=== PATIENT | male | born 1960 | race Caucasian/White ===

== ENCOUNTER 2016-08-23 15:08 | Inpatient (IN) | payer OTHER ==
[~2016-08-23] VITALS: Ht 167.6 cm; Wt 61.4 kg
[~2016-08-23 15:08] MED LIST: CARDIZEM C1 PO; LISINOPRIL10 MG PO; PRILOSEC20 MG PO
--- NOTE | 2016-08-23 16:16 | ED ORDER SUMMARY ---
..... Patient: ROGELIO TEIXEIRA OrderSheet [facility] VisitID: [id number] [place] [address] 56y, M Registration Date/Time: 08/23/2016 ORDER SHEET Weight: 63.5 kg (stated) Allergies: No Known Drug Allergy GENERAL ORDERS: CBC w Diff Urgent (15:30 08/23/2016 HBivens A.R.N.P.) (Ack 15:34 OHbashirnandez) (15:36 LWhalen R.N.) CMP Urgent (15:30 08/23/2016 HBivens A.R.N.P.) (Ack 15:34 OHbashirnandez) (15:36 LWhalen R.N.) UA-Culture if indicated Urgent (15:30 08/23/2016 HBivens A.R.N.P.) (Ack 15:34 OHbashirnandez) (15:50 LWhalen R.N.) Amylase Urgent (15:30 08/23/2016 HBivens A.R.N.P.) (Ack 15:34 OHernandez) (15:36 LWhalen R.N.) Lipase Urgent (15:30 08/23/2016 HBivens A.R.N.P.) (Ack 15:34 OHernandez) (15:36 LWhalen R.N.) CT Abd/Pel w Cont (No) (pending) Urgent (15:34 08/23/2016 HBivens A.R.N.P.) (Ack 15:36 OHbashirnandez) (16:26 [facility]) Chest 2V Urgent (17:00 08/23/2016 HBivens A.R.N.P.) (Ack 17:03 OHernandez) (17:12 LWhalen R.N.) EKG - ER Stat (17:01 08/23/2016 HBivens A.R.N.P.) (Ack 17:03 OHbashirnandez) (17:37 OHbashirnandez) NPO (17:04 08/23/2016 HBivens A.R.N.P.) (17:12 LWhalen R.N.) US Abdomen Limited (No) Urgent (18:16 08/23/2016 HBivens A.R.N.P.) (Ack 18:28 Ellie) (19:13 Josie) MEDICATION ORDERS: IV FLUIDS: IV NS : initial bolus 1000 mL (1000 mL/hr), then none - for X1 (NOW) (15:30 08/23/2016 HBivens A.R.N.P.) (15:46 LWhalen R.N.) Toradol IV 30 mg (NOW) (15:30 08/23/2016 HBivens A.R.N.P.) (15:46 LWhalen R.N.) IV Saline Lock (15:30 08/23/2016 HBivens A.R.N.P.) (Ack 15:50 LWhalen R.N.) IV NS : initial bolus none -, then 250 mL/hr (NOW) (17:01 08/23/2016 HBivens A.R.N.P.) (17:12 LWhalen R.N.) ORDER SHEET NOTES: [Electronically signed by Frantz Barboza R.N. (19:32 08/23/2016)] [Electronically signed by Sruthi Fuentes.R.N.P. (21:15 08/23/2016)] [Electronically locked/signed by Frantz Barboza R.N. (19:32 08/23/2016)]
--- NOTE | 2016-08-23 16:16 | ED ORDER SUMMARY ---
..... Patient: ROGELIO TEIXEIRA OrderSheet [facility] VisitID: [id number] [place] [address] 56y, M Registration Date/Time: 08/23/2016 ORDER SHEET Weight: 63.5 kg (stated) Allergies: No Known Drug Allergy GENERAL ORDERS: CBC w Diff Urgent (15:30 08/23/2016 HBivens A.R.N.P.) (Ack 15:34 OHbashirnandez) (15:36 LWhalen R.N.) CMP Urgent (15:30 08/23/2016 HBivens A.R.N.P.) (Ack 15:34 OHbashirnandez) (15:36 LWhalen R.N.) UA-Culture if indicated Urgent (15:30 08/23/2016 HBivens A.R.N.P.) (Ack 15:34 OHbashirnandez) (15:50 LWhalen R.N.) Amylase Urgent (15:30 08/23/2016 HBivens A.R.N.P.) (Ack 15:34 OHernandez) (15:36 LWhalen R.N.) Lipase Urgent (15:30 08/23/2016 HBivens A.R.N.P.) (Ack 15:34 OHernandez) (15:36 LWhalen R.N.) CT Abd/Pel w Cont (No) (pending) Urgent (15:34 08/23/2016 HBivens A.R.N.P.) (Ack 15:36 OHbashirnandez) (16:26 [facility]) Chest 2V Urgent (17:00 08/23/2016 HBivens A.R.N.P.) (Ack 17:03 OHernandez) (17:12 LWhalen R.N.) EKG - ER Stat (17:01 08/23/2016 HBivens A.R.N.P.) (Ack 17:03 OHbashirnandez) (17:37 OHbashirnandez) NPO (17:04 08/23/2016 HBivens A.R.N.P.) (17:12 LWhalen R.N.) US Abdomen Limited (No) Urgent (18:16 08/23/2016 HBivens A.R.N.P.) (Ack 18:28 Ellie) (19:13 Josie) MEDICATION ORDERS: IV FLUIDS: IV NS : initial bolus 1000 mL (1000 mL/hr), then none - for X1 (NOW) (15:30 08/23/2016 HBivens A.R.N.P.) (15:46 LWhalen R.N.) Toradol IV 30 mg (NOW) (15:30 08/23/2016 HBivens A.R.N.P.) (15:46 LWhalen R.N.) IV Saline Lock (15:30 08/23/2016 HBivens A.R.N.P.) (Ack 15:50 LWhalen R.N.) IV NS : initial bolus none -, then 250 mL/hr (NOW) (17:01 08/23/2016 HBivens A.R.N.P.) (17:12 LWhalen R.N.) ORDER SHEET NOTES: [Electronically signed by Frantz Barboza R.N. (19:32 08/23/2016)] [Electronically signed by Sruthi Fuentes.R.N.P. (21:15 08/23/2016)] [Electronically locked/signed by Frantz Barboza R.N. (19:32 08/23/2016)]
--- NOTE | 2016-08-23 16:16 | ED CLINICAL REPORT ---
Clinical Report - Physicians/Mid Levels [facility] [address] [place] [address] 08/23/2016 15:11 Patient: ROGELIO TEIXEIRA Time Seen: 15:15; initial patient contact, initial documentation, patient care assumed. Arrived- By private vehicle. Historian- patient. HISTORY OF PRESENT ILLNESS Chief Complaint: ABDOMINAL PAIN. This started last night and is still present. It was abrupt in onset and has been constant. At its maximum, severity described as severe. When seen in the E.D., severity described as severe. Modifying factors- worsened by movement, cough and deep breaths. Not relieved by anything. It is described as "pain". No radiation. It is described as located in the right pelvis and left pelvis and in the pelvic area. No nausea, loss of appetite, vomiting or diarrhea. No additional abdominal pain. No recent travel. Similar symptoms previously: Occasionally, as bad. ( states this pain is lower and feels like his intestines, not his pancreas). Recent medical care: The patient was seen recently and hospitalized. ( admitted last Fri at [facility] for pancreatitis and abd pain, dc friday, had f/u appt today with his pcp for 1619, but pain was too severe, so cancelled that appt and came here). REVIEW OF SYSTEMS No constipation, black stools, hematemesis, difficulty with urination or pain with urination. No urinary frequency, bloody stools, fever, chest pain or difficulty breathing. All systems otherwise negative, except as recorded above. PAST HISTORY See nurses notes. PROBLEMS: Chest Pain of GI Origin. GI Bleeding. Pancreatitis. --15:22 Frantz Barboza R.N. ADDITIONAL SURGERIES: Appendectomy. Knee Surgery. --15:22 Frantz Barboza R.N. SOCIAL HISTORY Heavy tobacco smoker. Occasional alcohol use. No drug use. No recent travel. Is a local resident. FAMILY HISTORY Negative. ADDITIONAL NOTES The nursing notes have been reviewed with agreement regarding the chief complaint, HPI, ROS, PMH and patient medications and allergies. PHYSICAL EXAM Vital Signs: 08/23/2016 15:19 BP: 173/91. HR: 92. RR: 18. O2 saturation: 95%. Temp: 99.8 F. Have been reviewed as abnormal and appear to be correct. Hypertensive. Heart rate normal. Respiratory rate normal. Temperature normal. Oxygen saturation normal. Appearance: Alert. Oriented X3. No acute distress. (pt somewhat rude and sharp with his tone). Eyes: Pupils equal, round and reactive to light. Eyes normal inspection. Neck: Normal inspection. Neck supple. CVS: Normal heart rate and rhythm. Heart sounds normal. Pulses normal. Respiratory: No respiratory distress. Breath sounds normal. Chest nontender. Abdomen: Soft. Moderate tenderness diffusely with guarding present. No rebound tenderness or Ruiz's, obturator or psoas sign present. Bowel sounds normal. No organomegaly. No mass. Tenderness present. Back: Normal inspection. Skin: Skin warm and dry. Normal skin color. No rash. Normal skin turgor. Extremities: Extremities exhibit normal ROM. No lower extremity edema. Neuro: Oriented X 3. No motor deficit. No sensory deficit. LABS, X-RAYS, AND EKG EKG: EKG time: (1735). No acute process. No acute ischemia. Normal EKG. Rate: 75. Normal EKG. The study has been interpreted contemporaneously by me (and dr pinto). The EKG appears to be a good tracing. Interpretation time: 1737. Chest X-ray: Normal Chest X-Ray. (IMPRESSION: 1. Negative chest. Electronically Final signed by:Antione Lew MD 08/23/2016 5:13:41 PM). The X-rays were interpreted by the radiologist and contemporaneously by me. Abdominal CT: . IMPRESSION: 1. Moderate to marked inflammatory changes and fluid of the left upper abdominal mesentery with dilated small bowel loops (local ileus). The overall appearance suggests acute pancreatitis (pancreatic tail) superimposed on chronic pancreatitis. 2. There is a 2.5 cm irregular fluid collection between the tail the pancreas and small bowel loops which may represent early pseudocyst or phlegmon. 3. Severe chronic right hydronephrosis (chronic ureteral pelvic junction obstruction). 4. Small amount of pelvic ascites. 5. Findings discussed with BERRY Hutchison. 6. Findings called to Dr. Pawel Patterson. All CT scans at this facility use dose modulation, iterative reconstruction, and/or weight-based dosing when appropriate to reduce radiation dose to as low as reasonably achievable. Electronically Final signed by:Antione Lew MD 08/23/2016 6:13:57 PM. The study was interpreted by the radiologist and discussed with the radiologist. Interpretation time: 1814. Laboratory Tests: CBC w Diff: (AR: 08/23/2016 15:40) ( MsgRcvd 08/23/2016 15:50) Final results Test Result Flag Units (Reference) WHITE BLOOD COUNT 16.7 H K/uL (4.5-11.5) RED BLOOD COUNT 5.35 M/uL (4.50-5.90) HEMOGLOBIN 17.4 gm/dL (13.5-17.5) HEMATOCRIT 52.6 % (41.0-53.0) MEAN CELL VOLUME 98 fL (80-100) MEAN CORPUSCULAR HGB 33 pg (26-34) MEAN CORPUSCULAR HGB CONC 33 g/dL (31-37) RED CELL DISTRIBUTION WIDTH 15.0 H % (11.6-14.8) PLATELET COUNT 356 K/uL (150-400) NEUTROPHIL % 87.3 H % (50-75) LYMPH % 4.8 L % (25-40) MONO % 4.7 % (3-14) EOSINOPHIL % 3.0 % (0-4) BASOPHIL % 0.2 % (0-2) CMP: (AR: 08/23/2016 15:40) ( MsgRcvd 08/23/2016 16:04) Final results Test Result Flag Units (Reference) GLUCOSE 101 mg/dL (70-110) BUN 18 mg/dL (7-18) CREATININE 0.7 mg/dL (0.6-1.3) Estimated GFR >60 mL/min Estimated GFR- >60 mL/min Note: Persistent reduction over 3 months in eGFR<60 mL/min/1.73 m2 defines CKD. Patients with eGFR values>=60 mL/min/1.73 m2 may also have CKD if evidence ofpersistent proteinuria. Additional information may be foundat www.[email or web address].org. SODIUM 140 mmol/L (136-145) POTASSIUM 3.7 mmol/L (3.5-5.1) CHLORIDE 103 mmol/L (98-107) CARBON DIOXIDE 27 mmol/L (21-32) CALCIUM 9.1 mg/dL (8.5-10.1) TOTAL PROTEIN 7.2 g/dL (6.4-8.2) ALBUMIN 2.7 L g/dL (3.3-5.0) BILIRUBIN, TOTAL 0.8 mg/dL (0.0-1.0) ALKALINE PHOSPHATASE 132 H U/L (46-116) AST (SGOT) 19 U/L (15-37) ALT (SGPT) 24 U/L (12-78) LIPASE 1373 H U/L (73-393) AMYLASE 347 H U/L (25-115) . PROGRESS AND PROCEDURES Course of Care: nurse reporting pt rude to her during triage and check in 16:46 08/23/16. Dr Hernandez here, pt's case reviewed and ct, and he is now at bedside dr hernandez reporting pt rude with him also 1650. back at bedside, because Dr Hernandez informing me pt has pcp at [facility], and pt told me earlier that he went there once for bp med, but has no pcp, pt now telling that he has ladmariah [place]ana at [facility], but doens't know her name, and pt starting to get rude with me telling me that I can find this info out or he can walk over himself, and starting to go off on tirade, asked pt to stop, that he was being rude for no reason, that he was rude as soon as he got here, that I was trying to help him but he didn't need to be rude or condescending to me, pt then apologized, explained to pt that I was trying to get best care for him and get him back on track, pt then admitted that he was not upset with me or us, he was upset with [place] staff because he doesn't feel that they did enough for him, they dc him home with no meds, and he followed their diet they gave him, and he is still sick, reassured pt that we would find out more answers for him and get him feeling better, pt then again apologized for his earlier behavior 1814. Dr Lew calling asking if US had been ordered yet 1840. US at bedside 1900. US tech Latisha finished and pt headed to room upstairs. 08/23/2016 18:35 BP: 145/82. HR: 75. RR: 18. O2 saturation: 93%. Vital Signs: have been reviewed as normal and appear to be correct. Discussed case with on-call health care provider, (call returned 16:15 Dr Hernandez). Reviewed test results. Agreed upon treatment plan and decision to admit. Health care provider will see patient in ED. Call placed to on-call health care provider call returned 16:59 Dr Patterson, will see pt in hospital, asked to get ekg and chest xray before pt comes up. Patient counseled in person regarding the patient's stable condition, test results, diagnosis and need for additional testing and admission. Differential Diagnosis: I considered gastritis, gastroenteritis, peptic ulcer disease, gastroesophageal reflux disease, mesenteric lymphadenitis, diverticulitis, colon cancer, ulcerative colitis, Crohn's disease, biliary colic, cholecystitis, cholelithiasis, hepatitis, pancreatitis, common bile duct obstruction and viral syndrome as a possible cause of abdominal pain in this patient. This is a partial list of diagnoses considered. Above considerations are based on history, physical exam, reassessment, laboratory data and other information. Differential diagnosis was discussed with patient. Disposition: Admitted to Acute Care. 16:16. CLINICAL IMPRESSION Acute generalized abdominal pain. Acute biliary pancreatitis. INSTRUCTIONS (htn). (Electronically signed by Sruthi Fuentes A.R.N.P. 08/23/2016 21:15)
--- NOTE | 2016-08-23 16:16 | ED NURSING NOTES ---
Clinical Report - Nurses [facility] [address] [place] [address] 08/23/2016 15:11 [id number] Triage time 15:19 Aug 23 2016. Acuity: LEVEL 3. Chief Complaint: ABDOMINAL PAIN. MARIANNA COMA SCORE: Marianna Coma Scale: 15- eyes open spontaneously (4); best verbal response- oriented x 4 (5); best motor response- obeys commands (6). --15:24 Frantz Barboza R.N. 15:19 08/23/16. BP: 173/91. HR: 92. RR: 18. O2 saturation: 95%. Temp: 99.8 F. Pain level now 10/10. --15:24 Frantz Barboza R.N. Weight: 63.5 kg stated. Height/Length: 66 inches Per Patient. BMI: 22.6. --15:22 Frantz Barboza R.N. Medications PriLOSEC Oral, daily (not sure of dose). --15:22 Frantz Barboza R.N. Bp meds. --15:22 Frantz Barboza R.N. Allergies No Known Drug Allergy. --15:22 Frantz Barboza R.N. History Arrived by private vehicle. Historian: patient. Accompanied by family. This started last night. ( Was admitted friday afternoon at [facility] for pancreatits was released friday. Patient states afternoon felt very full and had reflux now currently doubled over in lower abd pain. With cough or walking pain in abd increases.). He has had fever and abdominal pain. No nausea, vomiting, diarrhea or constipation. Last oral intake by patient was dinner. PAST MEDICAL HX: Peptic ulcer disease. Immunizations: up-to-date. SOCIAL HX: Current every day heavy tobacco smoker (cigarette)- less than 1 pack per day. Occasional alcohol use. No drug use. No recent travel. No known contact with a sick individual. SELF HARM ASSESSMENT: A self harm assessment was performed. The patient answered "no" to the question "Have you recently felt down, depressed, or hopeless?" and "Do you have thoughts of harming or killing yourself?". FALL RISK ASSESSMENT: Fall risk assessment completed. No fall risk identified. NUTRITIONAL RISK ASSESSMENT: The nutritional risk assessment revealed no deficiencies. FUNCTIONAL ASSESSMENT: Functional assessment: no impairments noted. LEARNING NEEDS ASSESSMENT: The learning needs assessment revealed no barriers. ABUSE ASSESSMENT: Abuse assessment: (yes) The patient was asked "Do you feel safe in your home?". SKIN INTEGRITY ASSESSMENT: Skin integrity risk assessment completed. No skin integrity risk identified. --15:24 Frantz Barboza R.N. PROBLEMS: Chest Pain of GI Origin. GI Bleeding. Pancreatitis. --15:22 Frantz Barboza R.N. ADDITIONAL SURGERIES: Appendectomy. Knee Surgery. --15:22 Frantz Barboza R.N. Interventions ID band on patient. --15:24 Frantz Barboza R.N. PHYSICAL ASSESSMENT To room via wheelchair. GENERAL / NEURO / PSYCH: Alert. Oriented X 4. Appears anxious and in distress. HEENT: Mucous membranes are pink. RESPIRATORY: Respirations not labored. Breath sounds within normal limits. CVS: Normal sinus rhythm noted. Capillary refill less than 2 seconds. GI / : Abdominal tenderness. Bowel sounds within normal limits. Normal genitalia. SKIN: Skin is warm and dry. --15:25 Frantz Barboza R.N. NURSING PROGRESS NOTES The initial plan of care for this patient includes an assessment with efforts to address patient positioning, appropriate ambient lighting and comfortable environmental temperature; impairment of the gastrointestinal system. Pulse oximeter and NIBP monitor placed on patient. Patient gowned. Head of bed elevated 45 degrees. Reassurance given. Call light placed in reach. Side rails up x 1. Bed placed in lowest position. Brakes of bed on. --15:25 Frantz Barboza R.N. 15:36 08/23/2016 Site #1 started via IV in the right forearm with an 20g angiocath, with aseptic technique and good blood return; one attempt. Blood drawn: rainbow set. Labeled in the presence of the patient and sent to the lab. Saline lock flushed with 10 mL saline. --15:46 Frantz Barboza R.N. 15:36 08/23/2016 Started bag #1 1000 mL IV Fluids IV NS (Saline); at 1000 mL/hr over 1 hour(s) via site #1 via dial-a-flow. Allergies verified and confirmed 5 rights. IV patency established. IV site checked: no pain, redness, or swelling. IV flushed thoroughly pre- and post-medication administration. --15:46 Frantz Barboza R.N. 15:46 08/23/2016 Toradol IVP 30 mg given over 2 minute(s) via site #1. Allergies verified and confirmed 5 rights. IV patency established. IV site checked: no pain, redness, or swelling. IV flushed thoroughly pre- and post-medication administration. --15:46 Frantz Barboza R.N. 17:12 08/23/2016 Started bag #1 1000 mL IV Fluids IV NS (Saline); at 250 mL/hr over 4 hour(s) via site #1 via IV pump. Allergies verified and confirmed 5 rights. IV patency established. IV site checked: no pain, redness, or swelling. IV flushed thoroughly pre- and post-medication administration. --17:12 Frantz Barboza R.N. EKG time: (17:36). EKG was performed by a tech and shown to the ED physician. --17:41 Nancy Carbajal 18:35 08/23/16. BP: 145/82. HR: 75. RR: 18. O2 saturation: 93% on room air. 18:08/23/16. BP: 147/87. HR: 82. RR: 20. O2 saturation: 93% on room air. 17:45 08/23/16. BP: 139/87. HR: 76. RR: 18. O2 saturation: 93%. 17:08/23/16. BP: 147/85. HR: 77. RR: 18. O2 saturation: 92%. 16:08/23/16. BP: 145/88. HR: 87. RR: 18. O2 saturation: 92%. 16:08/23/16. BP: 148/84. HR: 79. RR: 18. O2 saturation: 93% on room air. 15:45 08/23/16. BP: 154/91. HR: 86. RR: 18. O2 saturation: 93%. 15:30 08/23/16. BP: 166/98. HR: 85. RR: 18. O2 saturation: 95%. --18:36 Frantz Barboza R.N. ( Called to give report James RN will call back diego.). --18:37 Frantz Barboza R.N. DISPOSITION / DISCHARGE 16:59 08/23/2016 IV Fluids IV NS Discontinued: bag #1 infused. Total amount infused: 1000 mL. IV patency established. IV site checked: no pain, redness, or swelling. IV flushed thoroughly. --19:24 Frantz Barboza R.N. 18:58 08/23/2016 Site #[address] upon transfer; patent. Poor blood return present. --19:23 Frantz Barboza R.N. 18:59 08/23/2016 IV Fluids IV NS Continued: at the rate of 250 mL/hr. 850 mL remaining bag #1. IV patency established. IV site checked: no pain, redness, or swelling. IV flushed thoroughly. --19:24 Frantz Barboza R.N. Admitted to Acute Care (203). --19:25 Frantz Barboza R.N. 18:35 08/23/16. BP: 145/82. HR: 75. RR: 18. O2 saturation: 93% on room air. --19:25 Frantz Barboza R.N. Locked/Released at 08/23/2016 19:32 by Frantz Barboza R.N.
--- NOTE | 2016-08-23 17:18 | DIAGNOSTIC IMAGING REPORT ---
PROCEDURE: XR CHEST 2 VIEW INDICATION: Abdominal/chest pain. TECHNIQUE: PA and lateral views. COMPARISON: Compared to chest x-ray on 01/11/2016. FINDINGS: Allowing for suboptimal inspiration, lungs are clear. Heart and mediastinum are normal. Mild degenerative changes of the thoracic spine. IMPRESSION: 1. Negative chest.
--- NOTE | 2016-08-23 18:18 | DIAGNOSTIC IMAGING REPORT ---
PROCEDURE: CT ABD/PELVIS WITH CONTRAST INDICATION: Abdominal pain. History of appendectomy, pancreatitis, and chronic right hydronephrosis. Elevated white blood count (16,700). TECHNIQUE: 125 ml of Isovue 300 were injected intravenously and axial images were obtained of the entire abdomen and pelvis with sagittal and coronal reformations. COMPARISON: Comparison is made to CT abdomen and pelvis (is a 25 16) and abdominal ultrasound (03/04/2016). FINDINGS: ABDOMEN: There are moderate to marked inflammatory changes in the left upper small bowel mesentery with mildly to moderately dilated small bowel loops (local ileus). In addition, there is a 2.5 cm irregular fluid collection between the small bowel loops and body of the pancreas (possible early pseudocyst or phlegmon). There is evidence of chronic pancreatitis with dystrophic calcifications and chronic dilation of the pancreatic duct. Gallbladder, liver, spleen, aorta, and left kidney are normal. There is severe chronic right hydronephrosis (suggests chronic ureteral pelvic junction obstruction). There mild degenerate changes of the lumbar spine with 30% old compression deformity of the L2 vertebral body. PELVIS: Small amount of pelvic ascites. Pelvic structures are normal. IMPRESSION: 1. Moderate to marked inflammatory changes and fluid of the left upper abdominal mesentery with dilated small bowel loops (local ileus). The overall appearance suggests acute pancreatitis (pancreatic tail) superimposed on chronic pancreatitis. 2. There is a 2.5 cm irregular fluid collection between the tail the pancreas and small bowel loops which may represent early pseudocyst or phlegmon. 3. Severe chronic right hydronephrosis (chronic ureteral pelvic junction obstruction). 4. Small amount of pelvic ascites. 5. Findings discussed with BERRY Hutchison. 6. Findings called to Dr. Pawel Patterson. All CT scans at this facility use dose modulation, iterative reconstruction, and/or weight-based dosing when appropriate to reduce radiation dose to as low as reasonably achievable.
--- NOTE | 2016-08-23 19:14 | DIAGNOSTIC IMAGING REPORT ---
PROCEDURE: US ABDOMEN ULTRASOUND-LIMITED INDICATION: Pancreatitis. Abdominal pain. Assess for gallstones. TECHNIQUE: Mondragon scale and color Doppler sonographic images of the abdomen were obtained. COMPARISON: Compared to CT abdomen and pelvis earlier today (08/23/2016) and prior abdominal ultrasound (03/04/2016). FINDINGS: There is moderate biliary sludge and echogenic bile throughout the gallbladder with minimal gallbladder wall thickening 92 mm). There is no evidence of shadowing gallstones. Common duct is normal (7 mm). Portions of the pancreas are seen and there is evidence is chronic pancreatitis with extensive dystrophic calcifications. IMPRESSION: 1. Moderate chronic biliary sludge and echogenic bile, but no evidence of shadowing gallstones. 2. Normal common duct (7 mm). 3. Evidence of chronic pancreatitis.
[2016-08-23 19:21] VITALS: BP 146/102
--- NOTE | 2016-08-23 21:15 | ED MAR SUMMARY ---
..... Medication Administration Record [facility] [address] [place] [address] Patient: ROGELIO TEIXEIRA Visit ID: [id number] 56y, M Weight: 63.5 kg Height/Length: 66 in BMI: 22.6 ALLERGIES: No Known Drug Allergy Start 15:36 08/23/2016 Frantz Barboza R.N., Stop 16:59 08/23/2016 Frantz Barboza R.N. Medication Administered: IV NS (SALINE), Dose: IV Fluids over 1 hour(s), Rate: 1000 mL/hr, Dispensed: 1000 mL bag, Site: #1 right forearm. Medication Ordered: IV NS : initial bolus 1000 mL (1000 mL/hr), then none - for X1 (NOW). Given 15:46 08/23/2016 Frantz Barboza R.N. Medication Administered: TORADOL [IVP], Dose: 30 mg IVP over 2 minute(s), Site: #1 right forearm. Medication Ordered: Toradol IV 30 mg (NOW). Start 17:12 08/23/2016 Frantz Barboza R.N., Continued Upon Disposition 18:59 08/23/2016 Frantz Barboza R.N. Medication Administered: IV NS (SALINE), Dose: IV Fluids over 4 hour(s), Rate: 250 mL/hr, Dispensed: 1000 mL bag, Site: #1 right forearm. Medication Ordered: IV NS : initial bolus none -, then 250 mL/hr (NOW).
--- NOTE | 2016-08-23 21:15 | ED MED RECONCILIATION SUMMARY ---
Patient: ROGELIO TEIXEIRA Medication Reconciliation Report [facility] VisitID: [id number] [address] [place] [address] 56y, M Registration Date/Time: 08/23/2016 Weight: 63.5 kg Height/Length: 66 in. BMI: 22.6 ALLERGIES: No Known Drug Allergy The patient's Home Medications are listed below: THE FOLLOWING MEDICATIONS NEED TO BE RECONCILED: Bp meds PriLOSEC Oral, daily, not sure of dose The source(s) of the original Home Medication information: Not obtained. The following Medications were given to the patient in the Emergency Department: IV NS IV Fluids bolus 0, then 1000 mL/hr, administered: 08/23/2016 3:36:00 PM Toradol [IVP] IVP 30 mg, administered: 08/23/2016 3:46:00 PM IV NS IV Fluids bolus 0, then 250 mL/hr, administered: 08/23/2016 5:12:00 PM The following Medications were prescribed to the patient: None.
--- NOTE | 2016-08-23 21:15 | ED DISCHARGE INSTRUCTIONS ---
Patient: ROGELIO TEIXEIRA General Instructions [facility] VisitID: [id number] [address] [place] [address] 56y, M Registration Date/Time: 08/23/2016 Acute generalized abdominal pain. Acute biliary pancreatitis. INSTRUCTIONS (htn). (Electronically signed by Srtuhi Fuentes A.R.N.P. 08/23/2016 21:15)
--- NOTE | 2016-08-23 21:15 | ED DISCHARGE INSTRUCTIONS ---
Patient: ROGELIO TEIXEIRA General Instructions [facility] VisitID: [id number] [address] [place] [address] 56y, M Registration Date/Time: 08/23/2016 Acute generalized abdominal pain. Acute biliary pancreatitis. INSTRUCTIONS (htn). (Electronically signed by Sruthi Fuentes A.R.N.P. 08/23/2016 21:15)
--- NOTE | 2016-08-23 21:15 | ED MED RECONCILIATION SUMMARY ---
Patient: ROGELIO TEIXEIRA Medication Reconciliation Report [facility] VisitID: [id number] [address] [place] [address] 56y, M Registration Date/Time: 08/23/2016 Weight: 63.5 kg Height/Length: 66 in. BMI: 22.6 ALLERGIES: No Known Drug Allergy The patient's Home Medications are listed below: THE FOLLOWING MEDICATIONS NEED TO BE RECONCILED: Bp meds PriLOSEC Oral, daily, not sure of dose The source(s) of the original Home Medication information: Not obtained. The following Medications were given to the patient in the Emergency Department: IV NS IV Fluids bolus 0, then 1000 mL/hr, administered: 08/23/2016 3:36:00 PM Toradol [IVP] IVP 30 mg, administered: 08/23/2016 3:46:00 PM IV NS IV Fluids bolus 0, then 250 mL/hr, administered: 08/23/2016 5:12:00 PM The following Medications were prescribed to the patient: None.
--- NOTE | 2016-08-23 21:15 | ED MAR SUMMARY ---
..... Medication Administration Record [facility] [address] [place] [address] Patient: ROGELIO TEIXEIRA Visit ID: [id number] 56y, M Weight: 63.5 kg Height/Length: 66 in BMI: 22.6 ALLERGIES: No Known Drug Allergy Start 15:36 08/23/2016 Frantz Barboza R.N., Stop 16:59 08/23/2016 Frantz Barboza R.N. Medication Administered: IV NS (SALINE), Dose: IV Fluids over 1 hour(s), Rate: 1000 mL/hr, Dispensed: 1000 mL bag, Site: #1 right forearm. Medication Ordered: IV NS : initial bolus 1000 mL (1000 mL/hr), then none - for X1 (NOW). Given 15:46 08/23/2016 Frantz Barboza R.N. Medication Administered: TORADOL [IVP], Dose: 30 mg IVP over 2 minute(s), Site: #1 right forearm. Medication Ordered: Toradol IV 30 mg (NOW). Start 17:12 08/23/2016 Frantz Barboza R.N., Continued Upon Disposition 18:59 08/23/2016 Frantz Barboza R.N. Medication Administered: IV NS (SALINE), Dose: IV Fluids over 4 hour(s), Rate: 250 mL/hr, Dispensed: 1000 mL bag, Site: #1 right forearm. Medication Ordered: IV NS : initial bolus none -, then 250 mL/hr (NOW).
--- NOTE | 2016-08-23 22:03 | HISTORY AND PHYSICAL ---
ADMITTED: 08/23/2016 CHIEF COMPLAINT: 1. Abdominal pain HISTORY OF PRESENT ILLNESS: A 56-year-old male with abdominal pain x1 day. It came on, on the day of admission, described as severe in his lower abdomen as well as his upper abdomen. He states it is similar to the pain with which he was admitted to [facility] 1 week earlier; however, that pain was more in the epigastrium. Now it is across his lower abdomen as well. He states at [facility] he was told initially it was pancreatitis; but on discharge, he was told it might have been gastroenteritis. He was tolerating oral intake on discharge and was asked to stay on a full liquid diet, which he did. He also avoided alcohol, but the pain recurred on the day of admission and he was readmitted 5 days post discharge. He denies nausea or vomiting. He denies diarrhea, constipation, bright red blood per rectum, or melena. MEDICAL/SURGICAL HISTORY: Remarkable for abdominal pain, chest pain, nicotine dependence, hypertension, pancreatitis, ureteral obstruction, and hydronephrosis. The patient notes his pancreatitis was diagnosed greater than 5 years ago and was diagnosed as being due to stones. He does, however, admit to a history of alcohol use of approximately 6 drinks per day, though he notes he has had no alcohol between his admission at [facility] and his present admission. Surgeries: Appendectomy and knee surgery. MEDICATIONS: 1. Lisinopril 20 mg p.o. daily. 2. Cardizem CD 240 mg p.o. daily. 3. Omeprazole 20 mg p.o. daily. ALLERGIES: 1. NONE KNOWN. 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 He enjoys hunting and fishing. Smokin-2 packs per day. Alcohol: 6 drinks per day. Drug use: None. FAMILY HISTORY: Father had coronary artery disease and CABG. Mother in her 60s of COPD. One brother has renal failure and drug abuse. Four siblings are alive and well. REVIEW OF SYSTEMS: General: Denies fevers, chills, or sweats. HEENT: Denies vision change, hearing change, sore throat, sinus pain or ear pain. Respiratory: Denies chest pain, shortness of breath, wheezing. Cardiac: Denies chest pain, palpitations, paroxysmal nocturnal dyspnea. Gastrointestinal: See above. Genitourinary: Denies dysuria, hematuria, frequency. Musculoskeletal: Denies joint swelling, joint pain, or joint instability. Dermatological: Denies rash, dry skin, or itchy skin. PHYSICAL EXAMINATION: GENERAL: Well developed, well-nourished male in mild distress. VITAL SIGNS: Blood pressure 173/91, heart rate 92, respirations 18, SaO2 95%, temperature 99.8. HEENT: Tympanic membranes are clear. Pupils equal, round, and reactive to light. Extraocular motions intact. Sinuses are nontender. Throat is clear. NECK: Supple without adenopathy or thyromegaly. CHEST: Clear to auscultation and percussion. HEART: Regular rate and rhythm without murmur. There is no JVD. Carotids are 2+ symmetric without bruit. ABDOMEN: Positive bowel sounds but diffusely tender with guarding. BACK: Straight without CVA tenderness. EXTREMITIES: Without cyanosis, clubbing, or edema. GENITAL AND RECTAL: Exams were deferred as these were performed in the emergency department. LAB/IMAGING: WBC 16.7, hemoglobin 17.4, hematocrit 52.6. Glucose 101, BUN 18, creatinine 0.7, sodium 140, potassium 3.7, chloride 103, bicarbonate 27. Total bilirubin 0.8, alkaline phosphatase 132, AST 19, ALT 24, lipase 1373, amylase 347. EKG shows no acute changes with a rate of 75. Chest x-ray is clear. CT shows marked inflammation with dilated small bowel loops and local ileus with appearance of acute pancreatitis superimposed on chronic pancreatitis, a 2.5 cm irregular fluid collection near the tail of the pancreas consistent with early pseudocyst versus phlegmon, chronic right hydronephrosis noted, small amount of pelvic ascites noted. Abdominal ultrasound is pending. IMPRESSION: 1. Pancreatitis, question secondary to stones versus alcohol abuse. 2. Alcohol abuse. 3. Hypertension. 4. History of peptic ulcer disease. 5. Tobacco abuse. PLAN: Admit to [facility]. Intravenous pain control to be undertaken. Intravenous hydration. Pain will be monitored for resolution of pancreatitis. The patient will be maintained nothing by mouth. FULL CODE STATUS instituted as per patient request. The patient will be maintained on telemetry because of a past history of chest pain.
[2016-08-23 22:31] VITALS: BP 142/90
[2016-08-24 02:02] VITALS: BP 142/86
[2016-08-24 07:28] VITALS: BP 136/92
--- NOTE | 2016-08-24 08:45 | Progress Note ---
Subjective General 56 yo male with recurrent pancreatitis and hx stones causing pancreatitis but also hx alcohol abuse. Feelin much better today with pain 1-2/10 and no pain meds x 8 hours. Not nauseated. Passing gas. Physical Exam Vital Signs / I&Os Vital Signs Date Time Temp Pulse Resp B/P Pulse O2 O2 Flow FiO2 Ox Delivery Rate 08/25 727 99.3 66 18 136/92 91 Room Air 0.0 08/24 0202 99.3 67 18 142/86 88 Room Air 08/24 0100 2.0 08/23 2231 99.0 67 18 142/90 91 Room Air 08/23 1921 98.1 73 18 146/102 93 Room Air I&O 08/23 0800 08/23 1600 08/24 0000 Intake Total 603 Output Total 200 Balance 403 General Appearance Alert, Oriented X3, Cooperative, No acute distress Lungs Clear to auscultation Cardiovascular Regular rate and rhythm Abdomen Soft, No guarding, No rebound, 1+ tenderness in left upper and right lower abdomen. Extremities No edema Skin No Rashes LAB Results Laboratory Tests 08/23 08/23 08/24 1540 1700 0542 Chemistry Plasma Sodium (136 - 145 mmol/L) 140 137 Plasma Potassium (3.5 - 5.1 mmol/L) 3.7 3.6 Plasma Chloride (98 - 107 mmol/L) 103 103 CO2 (Enzymatic) (21 - 32 mmol/L) 27 27 BUN (7 - 18 mg/dL) 18 15 Creatinine (0.6 - 1.3 mg/dL) 0.7 0.6 Est GFR ( Amer) (mL/min) >60 >60 Est GFR (Non-Af Amer) (mL/min) >60 >60 Glucose (70 - 110 mg/dL) 101 79 Plasma Calcium (8.5 - 10.1 mg/dL) 9.1 8.2 Plasma Magnesium (1.8 - 2.4 mg/dL) 1.6 Total Bilirubin (0.0 - 1.0 mg/dL) 0.8 0.8 AST (15 - 37 U/L) 19 16 ALT (12 - 78 U/L) 24 13 Alkaline Phosphatase (46 - 116 U/L) 132 105 Total Protein (6.4 - 8.2 g/dL) 7.2 5.7 Albumin (3.3 - 5.0 g/dL) 2.7 1.9 Amylase (25 - 115 U/L) 347 204 Lipase (73 - 393 U/L) 1373 567 Hematology WBC (4.5 - 11.5 K/uL) 16.7 14.5 RBC (4.50 - 5.90 M/uL) 5.35 4.70 Hgb (13.5 - 17.5 gm/dL) 17.4 15.4 Hct (41.0 - 53.0 %) 52.6 46.7 MCV (80 - 100 fL) 98 99 MCH (26 - 34 pg) 33 33 RDW (11.6 - 14.8 %) 15.0 14.6 Neut % (Auto) (50 - 75 %) 87.3 82.9 Lymph % (Auto) (25 - 40 %) 4.8 6.0 [place] % (Auto) (3 - 14 %) 4.7 7.0 Eos % (Auto) (0 - 4 %) 3.0 3.9 Baso % (Auto) (0 - 2 %) 0.2 0.2 Plt Count, EDTA (150 - 400 K/uL) 356 299 PUBS MCHC (31 - 37 g/dL) 33 33 Urines Urine Color YELLOW Urine Appearance CLEAR Urine pH (5.0 - 8.0) 5.5 Ur Specific [place] (1.010 - 1.030) 1.010 Urine Protein (NEGATIVE) NEGATIVE Urine Ketones (NEGATIVE) 1+ Urine Blood (NEGATIVE) NEGATIVE Urine Nitrite (NEGATIVE) NEGATIVE Urine Bilirubin (NEGATIVE) NEGATIVE Urine Urobilinogen (0.2 - 1.0 EU/dL) 0.2 Ur Leukocyte Esterase (NEGATIVE) NEGATIVE Urine RBC (0 - 1 rbc/hpf) NONE SEEN Urine WBC (0 - 1 wbc/hpf) 0-1 Ur Epithelial Cells (0 - 5 EPI/hpf) NONE SEEN Urine Bacteria (NONE SEEN) TRACE (<1+) Urine Glucose (NEGATIVE) NEGATIVE Urine Comment CULT NOT INDICATED Assessment and Plan Problem List 1. Acute pancreatitis, unspecified Plan Improving. Will start clear liquids. 2. Hypertension Plan Will restart po meds. 3. Biliary sludge determined by ultrasound Plan Will consult surgery
--- NOTE | 2016-08-24 10:44 | CONSULTATION REPORT ---
DATE OF CONSULTATION: 08/24/2016 CHIEF COMPLAINT: 1. Abdominal pain HISTORY OF PRESENT ILLNESS: A 56-year-old alcoholic male, discharged approximately 1 week ago from [facility] where he was admitted with a diagnosis of pancreatitis versus gastroenteritis. The patient developed acute onset abdominal pain on the day of admission, was evaluated in the emergency department and admitted to [facility] by Dr. Patterson. Dr. Patterson has asked [facility] for our opinion concerning this patient. The patient states that he has not drank alcohol within the last week. He had been on a clear liquid, which was advanced to a full liquid diet. The pain developed in his lower abdomen which he described as quite intense and localized. No nausea, no vomiting, no diarrhea. No bright red blood per rectum or melenic stools. No fever. No chills. MEDICATIONS: 1. Include lisinopril 20 mg daily. 2. Cardizem 240 mg daily. 3. Omeprazole 20 mg daily. ALLERGIES: 1. NONE. MEDICAL/SURGICAL HISTORY: Hypertension, history of chronic ureteral obstruction and hydronephrosis, also carries a diagnosis of chronic pancreatitis, having been first diagnosed and hospitalized 5 years ago. He is status post appendectomy, status post ORIF left knee following accident. He was hospitalized with an upper gastrointestinal bleed for which he received a transfusion and underwent upper GI endoscopy secondary to alcohol abuse. SOCIAL HISTORY: He is single. 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 He drinks 6 drinks per day, smokes 1-2 packs of cigarettes a day. Does not use recreational drugs. FAMILY HISTORY: Mother in her 70s from complications of COPD and emphysema. Father history of coronary artery disease and coronary artery bypass. He had 4 brothers, one of which from renal failure and excessive drug use. One sister, alive and well. REVIEW OF SYSTEMS: The patient denies any history of hepatitis, jaundice, rheumatic fever, heart murmurs requiring antibiotics, bleeding tendencies, but he is positive for blood transfusions. The remaining 12-point review of systems is negative. PHYSICAL EXAMINATION: GENERAL: The patient is awake, alert, conversant and does not appear to be in any acute distress. VITAL SIGNS: Blood pressure 136/92, pulse 66, respirations 18, temperature 99.3. HEENT: Normocephalic, atraumatic. Pupils equal and reactive. No scleral icterus. External auditory canals clear. No nasal septal defect or discharge. Moist mucous membranes. Throat not injected. NECK: Supple. No JVD, carotid bruit or adenopathy. LUNGS: Clear. No rales, rhonchi, or wheezing. O2 saturation 91% on room air. HEART: Regular rhythm, no murmurs. ABDOMEN: Slightly distended, slightly tympanitic. Has hyperactive bowel sounds. He is tender in his lower abdomen and very tender in the hypogastrium as well. There is no evidence of [place] or [place] sign. There are no masses appreciable. EXTREMITIES: Full range of motion. No pretibial or ankle edema. NEUROLOGIC: The patient is grossly intact with no focal motor neurological deficits. SKIN: Warm and dry with no peripheral cyanosis. LYMPHATICS: No cervical, supraclavicular, axillary, or groin adenopathy. LAB/IMAGING: On admission, the patient's white count was 16.7, hemoglobin and hematocrit 17.4 and 52.6 respectively. This morning, his white count is 14.5, hemoglobin and hematocrit 15.4 and 46.7. Electrolytes on admission were normal, as they are this morning, including BUN and creatinine. His total bilirubin on admission was 0.8, today it is 0.8, alkaline phosphatase 132, today is 105. His liver function studies are all normal. On admission, his lipase was 1373, this morning 567, amylase on admission 347, this morning 204. EKG normal sinus rhythm. Chest x-ray shows no active inflammatory changes and no evidence of effusion. CAT scan of his abdomen shows ileus with chronic superimposed acute pancreatitis, 2.5 pseudocyst tail of the pancreas, right hydronephrosis and a small amount of ascites in the pelvis. Ultrasound shows no evidence of stones, no evidence of wall thickening. Common bile duct measures 7 mm, which is normal, and biliary sludge. IMPRESSION: Uncontrolled alcoholic smoker with hypertension with acute pancreatitis superimposed over chronic pancreatitis. I do not feel that this is gallbladder related. I feel that this is related to his alcoholism. I have discussed the pathophysiology of pancreatitis with the patient concerning his alcohol. Because of his smoking, alcohol and recurrent episodes of pancreatitis, he has a higher risk than the general population of developing a pancreatic cancer. At this point, I do not see how surgery would benefit him. However, we will continue to followup is necessary with you on this patient.
[2016-08-24 11:04] VITALS: BP 144/90
[2016-08-24 13:58] VITALS: BP 152/87
[2016-08-24 18:15] VITALS: BP 141/84
[2016-08-24 22:52] VITALS: BP 141/86
[2016-08-25 03:00] VITALS: BP 129/75
--- NOTE | 2016-08-25 06:17 | Progress Note ---
Subjective General 56 yo male with recurrent pancreatitis and hx stones causing pancreatitis but also hx alcohol abuse. Also has hx htn and tobacco abuse. CT shows early pseudocyst formation and some ascites. Lucero shows no stones but sludge in gallbladder. Surgical consult obtained with Dr. Perera who notes surgery not currently indicated. Feeling improved today with pain 1-2/10 and no pain meds since one dose post dinner last night. Not nauseated. Passing gas. Tolerating clear liquids and ambulating. Labs pending. Physical Exam Vital Signs / I&Os Vital Signs Date Time Temp Pulse Resp B/P Pulse O2 O2 Flow FiO2 Ox Delivery Rate 08/25 0300 99.0 65 20 129/75 93 Room Air 08/24 2252 99.3 64 20 141/86 93 Room Air 08/24 1815 98.2 77 20 141/84 92 Nasal 2.0 Cannula 08/24 1606 Nasal 2.0 Cannula 08/24 1358 99.9 71 18 152/87 93 Nasal 2.0 Cannula 08/24 1104 98.8 70 18 144/90 93 Nasal 2.0 Cannula 08/24 0930 2.0 08/24 0728 99.3 66 18 136/92 91 Room Air 0.0 I&O 08/24 0800 08/24 1600 08/25 0000 Intake Total 0 3136 2205 Output Total 023 285 2167 Balance -500 2186 630 General Appearance Alert, Oriented X3, Cooperative, No acute distress Lungs Clear to auscultation Cardiovascular Regular rate and rhythm Abdomen Normal bowel sounds, Soft, No tenderness Extremities No edema Skin No Rashes LAB Results Pending. Assessment and Plan Problem List 1. Acute pancreatitis, unspecified Plan Continue slow advance of diet and decreasing IV. Change to po pain meds. 2. Peptic ulcer disease Plan Continue pantoprazole. 3. Biliary sludge determined by ultrasound Plan Surgery consult done. Not a surgery candidate at present. 4. Hypertension Plan Controlled with po meds. 5. Tobacco abuse Plan Counselled.
[2016-08-25 07:06] VITALS: BP 140/90
--- NOTE | 2016-08-25 10:02 | Progress Note ---
Subjective General 56-year-old male admitted with abdominal pain. Tentative diagnosis is alcoholic pancreatitis. This morning he feels much better. Tolerating a full liquid diet. Passing flatus. Having had a bowel movement. Ambulatory. No shortness of breath or chest pain. Physical Exam Vital Signs / I&Os Vital Signs Date Time Temp Pulse Resp B/P Pulse O2 O2 Flow FiO2 Ox Delivery Rate 08/25 0802 94 08/25 0706 98.8 70 20 140/90 93 Room Air 0.0 I&O 08/24 0800 08/24 1600 08/25 0000 Intake Total 0 3136 2205 Output Total 614 252 3118 Balance -500 2186 630 General Appearance Alert, Oriented X3, Cooperative, No acute distress HEENT Normal exam, no scleral icterus Lungs Clear to auscultation Neck No JVD Cardiovascular Regular rate and rhythm Abdomen Normal bowel sounds, Soft, No tenderness, No masses Extremities No cyanosis, No edema Skin no peripheral cyanosis Neurological Normal exam LAB Results Laboratory Tests 08/25 545 Chemistry Plasma Sodium (136 - 145 mmol/L) 139 Plasma Potassium (3.5 - 5.1 mmol/L) 3.4 Plasma Chloride (98 - 107 mmol/L) 103 CO2 (Enzymatic) (21 - 32 mmol/L) 30 BUN (7 - 18 mg/dL) 6 Creatinine (0.6 - 1.3 mg/dL) 0.6 Est GFR ( Amer) (mL/min) >60 Est GFR (Non-Af Amer) (mL/min) >60 Glucose (70 - 110 mg/dL) 101 Plasma Calcium (8.5 - 10.1 mg/dL) 8.7 Plasma Magnesium (1.8 - 2.4 mg/dL) 1.8 Total Bilirubin (0.0 - 1.0 mg/dL) 0.7 AST (15 - 37 U/L) 18 ALT (12 - 78 U/L) 16 Alkaline Phosphatase (46 - 116 U/L) 114 Total Protein (6.4 - 8.2 g/dL) 6.2 Albumin (3.3 - 5.0 g/dL) 2.0 Lipase (73 - 393 U/L) 565 Hematology WBC (4.5 - 11.5 K/uL) 10.0 RBC (4.50 - 5.90 M/uL) 5.01 Hgb (13.5 - 17.5 gm/dL) 16.2 Hct (41.0 - 53.0 %) 49.6 MCV (80 - 100 fL) 99 MCH (26 - 34 pg) 32 RDW (11.6 - 14.8 %) 14.6 Neut % (Auto) (50 - 75 %) 77.8 Lymph % (Auto) (25 - 40 %) 8.0 [place] % (Auto) (3 - 14 %) 10.0 Eos % (Auto) (0 - 4 %) 3.7 Baso % (Auto) (0 - 2 %) 0.5 Plt Count, EDTA (150 - 400 K/uL) 323 PUBS MCHC (31 - 37 g/dL) 33 Assessment and Plan Problem List 1. Acute pancreatitis, unspecified Plan Suspected alcoholic pancreatitis. We'll need to comply with alcohol cessation. Recommend ERCP in 6-8 weeks. 2. Hypertension Plan Hypertension presently being followed and addressed by hospitalist. 3. Tobacco abuse Plan Tobacco cessation plan being addressed by hospitalist and nursing. 4. Hydronephrosis concurrent with and due to ureteral stricture Plan Chronic issue will need to be addressed on discharged by urologist. 5. Biliary sludge determined by ultrasound Plan Biliary sludge normal variant on patient who is not eaten meals a containing fat. Will need to cause the gallbladder did contract to evacuate sludge in the future with balanced diet.
[2016-08-25 12:08] VITALS: BP 136/87
[2016-08-25 18:03] VITALS: BP 161/89
[2016-08-25 23:28] VITALS: BP 144/88
[2016-08-26 02:39] VITALS: BP 156/87
[2016-08-26 06:59] VITALS: BP 157/96
--- NOTE | 2016-08-26 07:28 | Progress Note ---
Subjective General d/c summary dictated.
--- NOTE | 2016-08-26 07:28 | Progress Note ---
Subjective General d/c summary dictated.
[2016-08-26] MEDS ORDERED: CARDIZEM C1 PO (07:41)
[2016-08-26] MEDS ORDERED: LISINOPRIL10 MG PO (07:42)
[2016-08-26] MEDS ORDERED: PRILOSEC20 MG PO (07:43)
[2016-08-26] MEDS ORDERED: VICODIN EQUIVAL1 TAB PO (07:43)
--- NOTE | 2016-08-26 07:47 | Provider's Discharge Care Plan ---
Problem, Goal, Plan Problem List 1. Acute pancreatitis, unspecified Goals: Improve disease control Instructions: Take meds as directed, No alcohol. Low fat diet. 2. Hypertension Goals: Improve disease control Instructions: Take meds as directed 3. Tobacco abuse Goals: Improved health/wellness Instructions: Stop smoking 4. Peptic ulcer disease Goals: Improved health/wellness Instructions: Take meds as directed 5. Biliary sludge determined by ultrasound Goals: Improved health/wellness Instructions: Follow up as directed
--- NOTE | 2016-08-26 11:54 | DISCHARGE SUMMARY ---
ADMIT DATE: 08/23/2016 DISCHARGE DATE: 08/26/2016 ADMITTING DIAGNOSES: 1. Pancreatitis, question secondary to stones versus alcohol abuse 2. Alcohol abuse 3. Hypertension 4. Tobacco abuse 5. History of peptic ulcer disease DISCHARGE DIAGNOSES: 1. Pancreatitis, question secondary to stones versus alcohol abuse 2. Alcohol abuse 3. Hypertension 4. Tobacco abuse 5. History of peptic ulcer disease 6. Biliary sludge on ultrasound BRIEF HISTORY: The patient presented with recurrent abdominal pain and lab findings consistent with pancreatitis. CT scan showed an inflamed pancreas with early pseudocyst. Ultrasound was obtained, showing biliary sludge. No stones were identified. HOSPITAL COURSE: The patient was admitted and treated for pancreatitis with n.p.o. status, vigorous IV hydration, IV pain control and antiemetics. He was kept off alcohol and tobacco and blood pressure managed initially with IV metoprolol. As the patient's pain resolved, he was switched to clear liquids and restarted on oral antihypertensive medications as prior to admission. He tolerated this transition well, and by the day of discharge was transitioned to a full liquid diet, which he tolerated. He was tolerating ambulation, and lipase improved significantly with serial testing, and bowel function returned. Nausea resolved. Electrolyte disturbance was noted with vigorous hydration, with low magnesium and potassium. These were replaced with IV supplements. A surgical consultation was obtained to discuss management of biliary sludge and recurrent pancreatitis. Dr. Perera consulted and recommended the possibility of a HIDA scan with possible future stenting prior to surgical treatment. This will be managed as an outpatient. PHYSICAL EXAMINATION: VITAL SIGNS: Stable, afebrile. CHEST: Clear. HEART: Regular rate and rhythm without murmur. ABDOMEN: Positive bowel sounds. Soft, nontender, without hepatosplenomegaly or masses. BACK: Straight without CVA tenderness. EXTREMITIES: Without cyanosis, clubbing, or edema. DISCHARGE INSTRUCTIONS/MEDICATIONS: Disposition: Home. Discharge medications: Vicodin 5/325 mg 1 p.o. q.4 hours p.r.n. pain, #20 prescribed; diltiazem CD 180 mg 1 p.o. daily; lisinopril 20 mg p.o. daily; omeprazole 20 mg p.o. daily. Special instructions: Low-fat diet, recommended avoiding meats. Alcohol cessation recommended due to recurrent pancreatitis. Tobacco cessation recommended. The patient plans no work this week. I agree with that plan, due to the recurrent pancreatitis. Followup instructions: Follow up with my office in 2 weeks.
== END 2016-08-26 10:10 | disposition home or self-care (01) | DRG 439 ==
LOC: ED SRH 15:08 → TRANS SRH 17:50 → ACUTE2 SRH 19:00
PROVIDERS: ADMIT Family Medicine
DX: K85.20 Alcohol induced acute pancreatitis without necrosis or infection (principal); K85.10 Biliary acute pancreatitis without necrosis or infection; K86.3 Pseudocyst of pancreas; K56.7 Ileus, unspecified; K86.1 Other chronic pancreatitis; I10 Essential (primary) hypertension; F10.20 Alcohol dependence, uncomplicated; F17.210 Nicotine dependence, cigarettes, uncomplicated
CPT/HCPCS: 90004; 90074; 90100; 92235; 92530; 92720; 95059

== ENCOUNTER 2016-10-16 08:37 | Outpatient (CLI) | payer OTHER ==
[~2016-10-16 08:37] MED LIST changes: +VICODIN EQUIVAL1 TAB PO
--- NOTE | 2016-10-16 09:59 | DIAGNOSTIC IMAGING REPORT ---
PROCEDURE: CT ABDOMEN W/WO CONTRAST INDICATION: F/U ABNORMAL CT, CHECK FLUID AROUND PANCREAS TECHNIQUE: Axial scans before and after 125 ml Isovue 300 IV through the abdomen. Coronal and sagittal re-formations. COMPARISON: Abdominal ultrasound and CT abdomen/pelvis 08/23/2016. FINDINGS: Multiple dystrophic calcifications throughout the pancreas with dilation of the pancreatic duct (9 mm), consistent with chronic pancreatitis. Interval resolution of inflammatory changes around the tail of the pancreas with no evidence of a pseudocyst or phlegmon. Resolved small bowel ileus. Lung base are clear. Heart size is normal. Liver, gallbladder,, adrenal glands and the left kidney are unremarkable. Chronic severe right hydronephrosis secondary to UPJ obstruction is unchanged. Moderate atherosclerosis of the aorta. Mild degenerative changes of the spine with stable 30% chronic L2 compression fracture. IMPRESSION: 1. Chronic pancreatitis with resolved previously noted acute pancreatitis. No evidence of a pseudocyst. 2. Stable severe chronic right hydronephrosis secondary to UPJ obstruction
== END 2016-10-16 23:00 ==
LOC: CT SRH 08:37
DX: K86.1 Other chronic pancreatitis (principal); Q62.0 Congenital hydronephrosis

== ENCOUNTER 2016-10-29 15:17 | Emergency (ER) | payer OTHER ==
--- NOTE | 2016-10-29 17:32 | ED ORDER SUMMARY ---
..... Patient: ROGELIO TEIXEIRA OrderSheet [facility] VisitID: [id number] [place] [address] 56y, M Registration Date/Time: 10/29/2016 ORDER SHEET Weight: 57.6 kg (stated) Allergies: No Known Drug Allergy GENERAL ORDERS: CBC w Diff Urgent (15:50 10/29/2016 HBivens A.R.N.P.) (Ack 16:08 LNations ER Tech1) (16:13 LWhalen R.N.) CMP Urgent (15:50 10/29/2016 HBivens A.R.N.P.) (Ack 16:08 LNations ER Tech1) (16:13 LWhalen R.N.) UA-Culture if indicated Urgent (15:50 10/29/2016 HBivens A.R.N.P.) (Ack 16:08 LNations ER Tech1) (17:43 LWhalen R.N.) Amylase Urgent (15:50 10/29/2016 HBivens A.R.N.P.) (Ack 16:08 LNations ER Tech1) (16:13 LWhalen R.N.) Lipase Urgent (15:50 10/29/2016 HBivens A.R.N.P.) (Ack 16:08 LNations ER Tech1) (16:13 LWhalen R.N.) MEDICATION ORDERS: IV FLUIDS: IV NS : initial bolus 1000 mL (1000 mL/hr), then none - (NOW) (15:49 10/29/2016 HBivens A.R.N.P.) (16:17 LWhalen R.N.) Toradol IV 30 mg (NOW) (15:49 10/29/2016 HBivens A.R.N.P.) (16:17 LWhalen R.N.) Zofran IV 4 mg (NOW) (15:50 10/29/2016 HBivens A.R.N.P.) (16:17 LWhalen R.N.) IV Saline Lock (15:50 10/29/2016 HBivens A.R.N.P.) (Ack 16:21 LWhalen R.N.) IV NS : initial bolus 1000 mL (1000 mL/hr), then none - (NOW) (17:17 10/29/2016 Erwin A.R.N.P.) (Ack 17:48 LWbreanne R.N.) ORDER SHEET NOTES: [Electronically signed by Frantz Barboza R.N. (18:51 10/29/2016)] [Electronically signed by Sruthi FuentesR.N.P. (21:37 10/29/2016)] [Electronically locked/signed by Frantz Barboza R.N. (18:51 10/29/2016)]
--- NOTE | 2016-10-29 17:32 | ED NURSING NOTES ---
Clinical Report - Nurses [facility] [address] [place] [address] 10/29/2016 15:20 Patient: ROGELIO TEIXEIRA [facility]#: [id number] TRIAGE Triage time 15:Oct 29 2016. Acuity: LEVEL 3. Chief Complaint: ABDOMINAL PAIN, NAUSEA and VOMITING. MARIANNA COMA SCORE: Marianna Coma Scale: 15- eyes open spontaneously (4); best verbal response- oriented x 4 (5); best motor response- obeys commands (6). --15:36 Frantz Barboza R.N. 15:31 10/29/16. BP: 176/88. HR: 70. RR: 18. O2 saturation: 98%. Temp: 98.7 F. Pain level now 6/10. --15:36 Frantz Barboza R.N. Weight: 57.6 kg stated. Height/Length: 66 inches Per Patient. BMI: 20.5. --15:35 Frantz Barboza R.N. Medications Bp meds. PriLOSEC Oral, daily (not sure of dose). --15:33 Frantz Barboza R.N. Allergies No Known Drug Allergy. --15:33 Frantz Barboza R.N. History Arrived by private vehicle. Historian: patient. ( This began this am nausea vomiting and upper abdominal pain midline. States throwing up green. States feels like pancreatic pains like before.). He has had nausea, vomiting and abdominal pain. No diarrhea, constipation or fever. Last oral intake by patient was (1200 jello). PAST MEDICAL HX: Immunizations: up-to-date. SOCIAL HX: Heavy tobacco smoker (cigarette)- 1 pack per day. No alcohol use or drug use. No recent travel. SELF HARM ASSESSMENT: A self harm assessment was performed. The patient answered "no" to the question "Have you recently felt down, depressed, or hopeless?" and "Do you have thoughts of harming or killing yourself?". FALL RISK ASSESSMENT: Fall risk assessment completed. No fall risk identified. NUTRITIONAL RISK ASSESSMENT: The nutritional risk assessment revealed no deficiencies. FUNCTIONAL ASSESSMENT: Functional assessment: no impairments noted. LEARNING NEEDS ASSESSMENT: The learning needs assessment revealed no barriers. ABUSE ASSESSMENT: Abuse assessment: (yes) The patient was asked "Do you feel safe in your home?". SKIN INTEGRITY ASSESSMENT: Skin integrity risk assessment completed. No skin integrity risk identified. --15:36 Frantz Barboza R.N. PROBLEMS: Abdominal Pain. Peptic Ulcer Disease. Chest Pain of GI Origin. GI Bleeding. Pancreatitis. --15:33 Frantz Barboza R.N. ADDITIONAL SURGERIES: Appendectomy. Knee Surgery. --15:33 Frantz Barboza R.N. Interventions ID band on patient. --15:36 Frantz Barboza R.N. PHYSICAL ASSESSMENT Ambulatory to room. GENERAL / NEURO / PSYCH: Alert. Oriented X 4. Appears in no acute distress. HEENT: Mucous membranes are pink. RESPIRATORY: Respirations not labored. Breath sounds within normal limits. CVS: Normal sinus rhythm noted. Capillary refill less than 2 seconds. GI / : The patient has had nausea. Emesis noted. Abdomen soft. Abdominal tenderness. SKIN: Skin is warm and dry. --15:36 Frantz Barboza R.N. NURSING PROGRESS NOTES The initial plan of care for this patient includes an assessment with efforts to address patient positioning, appropriate ambient lighting and comfortable environmental temperature; impairment of the gastrointestinal system. Pulse oximeter and NIBP monitor placed on patient. Patient gowned. Head of bed elevated 75 degrees. Reassurance given. Call light placed in reach. Side rails up x 1. Bed placed in lowest position. Brakes of bed on. --15:36 Frantz Barboza R.N. 16:10 10/29/2016 Site #1 started via IV in the right forearm with an 20g angiocath, with aseptic technique and good blood return; one attempt. Blood drawn. Labeled in the presence of the patient and sent to the lab. Saline lock flushed with 10 mL saline. --16:14 Frantz Barboza R.N. 16:12 10/29/2016 Toradol IVP 30 mg given over 2 minute(s) via site #1. Allergies verified and confirmed 5 rights. IV patency established. IV site checked: no pain, redness, or swelling. IV flushed thoroughly pre- and post-medication administration. --16:17 Frantz Barboza R.N. 16:14 10/29/2016 Started bag #1 1000 mL IV Fluids IV NS (Saline); at 1000 mL/hr over 1 hour(s) via site #1 via IV pump. Allergies verified and confirmed 5 rights. IV patency established. IV site checked: no pain, redness, or swelling. IV flushed thoroughly pre- and post-medication administration. --16:17 Frantz Barboza R.N. 16:17 10/29/2016 Zofran (Ondansetron HCl) IVP 4 mg given over 2 minute(s) via site #1. Allergies verified and confirmed 5 rights. IV patency established. IV site checked: no pain, redness, or swelling. IV flushed thoroughly pre- and post-medication administration. --16:17 Frantz Barboza R.N. 17:15 10/29/2016 IV Fluids IV NS Discontinued: bag #1. Total amount infused: 1715 mL. IV patency established. IV site checked: no pain, redness, or swelling. IV flushed thoroughly. --17:48 Frantz Barboza R.N. <<STRICKEN ENTRY-- 17:20 10/29/2016 Started bag #1 1000 mL IV Fluids IV NS (Saline); at 1000 mL/hr over 1 hour(s) via site #1 via IV pump. Allergies verified and confirmed 5 rights. IV patency established. IV site checked: no pain, redness, or swelling. IV flushed thoroughly pre- and post-medication administration. --17:46 Frantz Barboza R.N. --END STRIKE>> Correction. --17:47 Frantz Barboza R.N. 17:20 10/29/2016 Started bag #2 1000 IV Fluids IV NS (Saline); at 1000 mL/hr over 1 hour(s) via site #1 via IV pump. Allergies verified and confirmed 5 rights. IV patency established. IV site checked: no pain, redness, or swelling. IV flushed thoroughly pre- and post-medication administration. --17:47 Frantz Barboza R.N. 17:30 10/29/16. BP: 140/86. HR: 88. RR: 18. O2 saturation: 98%. 17:00 10/29/16. BP: 141/86. HR: 88. RR: 18. O2 saturation: 97%. 16:30 10/29/16. BP: 149/88. HR: 89. RR: 18. O2 saturation: 95%. 16:00 10/29/16. BP: 143/85. HR: 86. RR: 18. O2 saturation: 98%. --18:49 Frantz Barboza R.N. DISPOSITION / DISCHARGE 18:30 10/29/2016 Site #1 removed upon discharge. Catheter intact. Pressure dressing applied. --18:50 Frantz Barboza R.N. 18:30 10/29/2016 IV Fluids IV NS Discontinued: bag #2 infused upon discharge. Total amount infused: 1000 mL. IV patency established. IV site checked: no pain, redness, or swelling. IV flushed thoroughly. --18:51 Frantz Barboza R.N. Departure time: 18:Oct 29 2016. Condition at departure: improved. No learning barriers present. Discharge instructions provided and reviewed with the patient. Reviewed warnings. Reviewed medication(s). Treatments reviewed. Reviewed referrals. Patient verbalized understanding. Written instructions provided in Wolof. The patient was discharged home. He left the Emergency Department ambulatory and via private vehicle. Patient driving. --18:51 Frantz Braboza R.N. 18:30 10/29/16. BP: 134/78. HR: 62. RR: 18. O2 saturation: 96%. Temp: 98.4 F. Pain level now: 08/26. --18:51 Frantz Barboza R.N. Locked/Released at 10/29/2016 18:51 by Frantz Barboza R.N.
--- NOTE | 2016-10-29 17:32 | ED CLINICAL REPORT ---
Clinical Report - Physicians/Mid Levels [facility] [address] [place] [address] 10/29/2016 15:20 Patient: ROGELIO TEIXEIRA Time Seen: 15:34; initial patient contact, initial documentation, patient care assumed. Arrived- By private vehicle. Historian- patient. HISTORY OF PRESENT ILLNESS Chief Complaint: ABDOMINAL PAIN. At its maximum, severity described as severe. When seen in the E.D., severity described as severe. Modifying factors. Not worsened by anything. Not relieved by anything. It is described as "pain", sharp and stabbing. No radiation. It is described as located in the right upper quadrant and in the upper abdomen. This started today and is still present. It was abrupt in onset and has been constant. The patient has had nausea. No loss of appetite or diarrhea. He has had severe vomiting. The vomiting has occurred numerous times and has been bilious. No feculent emesis, blood-tinged emesis, coffee-grounds emesis, frankly bloody emesis or unusually dark emesis. No additional abdominal pain. No recent travel. Similar symptoms previously: Milder. ( dx with pancreatitis, feels same as that, but not as bad). Recent medical care: Not recently seen/assessed. REVIEW OF SYSTEMS No constipation, black stools, hematemesis, difficulty with urination or pain with urination. No urinary frequency, bloody stools, fever, chest pain or difficulty breathing. All systems otherwise negative, except as recorded above. PAST HISTORY See nurses notes. PROBLEMS: Abdominal Pain. Peptic Ulcer Disease. Chest Pain of GI Origin. GI Bleeding. Pancreatitis. --15:33 Frantz Barboza R.N. ADDITIONAL SURGERIES: Appendectomy. Knee Surgery. --15:33 Frantz Barboza R.N. SOCIAL HISTORY Heavy tobacco smoker. No alcohol use or drug use. No recent travel. Is a local resident. FAMILY HISTORY Negative. ADDITIONAL NOTES The nursing notes have been reviewed with agreement regarding the chief complaint, HPI, ROS, PMH and patient medications and allergies. PHYSICAL EXAM Vital Signs: 10/29/2016 15:31 BP: 176/88. HR: 70. RR: 18. O2 saturation: 98%. Temp: 98.7 F. Have been reviewed as normal and appear to be correct. Appearance: Alert. Oriented X3. No acute distress. Eyes: Pupils equal, round and reactive to light. Eyes normal inspection. Neck: Normal inspection. Neck supple. CVS: Normal heart rate and rhythm. Heart sounds normal. Pulses normal. Respiratory: No respiratory distress. Breath sounds normal. Chest nontender. Abdomen: Soft. Moderate tenderness in the right upper quadrant and epigastric area. Positive Ruiz's sign. No guarding, rebound tenderness or obturator or psoas sign present. Bowel sounds normal. No organomegaly. No mass. Tenderness present. Back: Normal inspection. Skin: Skin warm and dry. Normal skin color. No rash. Normal skin turgor. Extremities: Extremities exhibit normal ROM. No lower extremity edema. Neuro: Oriented X 3. No motor deficit. No sensory deficit. LABS, X-RAYS, AND EKG Laboratory Tests: CBC w Diff: (AR: 10/29/2016 16:10) ( [facility]20) Final results Test Result Flag Units (Reference) WHITE BLOOD COUNT 18.0 H K/uL (4.5-11.5) RED BLOOD COUNT 5.33 M/uL (4.50-5.90) HEMOGLOBIN 17.5 gm/dL (13.5-17.5) HEMATOCRIT 51.7 % (41.0-53.0) MEAN CELL VOLUME 97 fL (80-100) MEAN CORPUSCULAR HGB 33 pg (26-34) MEAN CORPUSCULAR HGB CONC 34 g/dL (31-37) RED CELL DISTRIBUTION WIDTH 17.4 H % (11.6-14.8) PLATELET COUNT 234 K/uL (150-400) NEUTROPHIL % 93.3 H % (50-75) LYMPH % 3.6 L % (25-40) MONO % 2.3 L % (3-14) EOSINOPHIL % 0.3 % (0-4) BASOPHIL % 0.5 % (0-2) CMP: (AR: 10/29/2016 16:10) ( [facility] 10/29/2016 17:03) Final results Test Result Flag Units (Reference) GLUCOSE 93 mg/dL (70-110) BUN 14 mg/dL (7-18) CREATININE 0.7 mg/dL (0.6-1.3) Estimated GFR >60 mL/min Estimated GFR- >60 mL/min Note: Persistent reduction over 3 months in eGFR<60 mL/min/1.73 m2 defines CKD. Patients with eGFR values>=60 mL/min/1.73 m2 may also have CKD if evidence ofpersistent proteinuria. Additional information may be foundat www.kidney.org. SODIUM 142 mmol/L (136-145) POTASSIUM 3.6 mmol/L (3.5-5.1) CHLORIDE 105 mmol/L (98-107) CARBON DIOXIDE 27 mmol/L (21-32) CALCIUM 8.8 mg/dL (8.5-10.1) TOTAL PROTEIN 6.9 g/dL (6.4-8.2) ALBUMIN 3.0 L g/dL (3.3-5.0) BILIRUBIN, TOTAL 0.9 mg/dL (0.0-1.0) ALKALINE PHOSPHATASE 130 H U/L (46-116) AST (SGOT) 15 U/L (15-37) ALT (SGPT) 16 U/L (12-78) LIPASE 793 H U/L (73-393) AMYLASE 164 H U/L (25-115) . PROGRESS AND PROCEDURES Course of Care: 1705. Pt aware of lab results and need for admit, pt does not want to stay, had discussion with pt, and agreed to do one more bag of ivf, and dc home with nausea and pain med, and pt would return if there were more issues. Patient counseled in person regarding the patient's stable condition, test results and diagnosis. Differential Diagnosis: I considered gastritis, gastroenteritis, peptic ulcer disease, gastroesophageal reflux disease, acute appendicitis, diverticulitis, colon cancer, ulcerative colitis, Crohn's disease, intussusception, obstipation, biliary colic, cholecystitis, cholelithiasis, hepatitis, pancreatitis, splenic infarction, splenic abscess, urinary tract infection, ureterolithiasis and viral syndrome as a possible cause of abdominal pain in this patient. This is a partial list of diagnoses considered. Above considerations are based on history, physical exam, reassessment and laboratory data. Differential diagnosis was discussed with patient. Disposition: Discharged home in good and improved condition (17:32). Condition: good and stable. CLINICAL IMPRESSION Acute biliary pancreatitis. No alcoholic, drug-induced or idiopathic pancreatitis. No pseudocyst, abscess or hyperlipidemia. INSTRUCTIONS Drink plenty of fluids for the next 48 hours until better. Warnings: GENERAL WARNINGS: Return or contact your physician immediately if your condition worsens or changes unexpectedly, if not improving as expected, or if other problems arise. SPECIFICALLY, return if you develop pain in the abdomen or pelvis, fever, the inability to keep fluids down, blood in vomitus, blood in diarrhea, fainting or lightheadedness. Prescription Medications: Zofran 4 mg: Take 1 orally every six hours as needed for nausea/vomiting. Dispense ten (10). No refills. Substitution is permissible. Scotrun 5 mg / 325 mg tablets: take 1 to 2 orally every 6 hours as needed for pain. Dispense fifteen (15). No refills. Substitution is permissible. Follow-up: Follow up with your doctor tomorrow even if well. Call for an appointment. Summary of care provided to patient. Understanding of the discharge instructions verbalized by patient. (Electronically signed by Sruthi Fuentes A.R.N.P. 10/29/2016 21:37)
--- NOTE | 2016-10-29 17:32 | ED ORDER SUMMARY ---
..... Patient: ROGELIO TEIXEIRA OrderSheet [facility] VisitID: [id number] [place] [address] 56y, M Registration Date/Time: 10/29/2016 ORDER SHEET Weight: 57.6 kg (stated) Allergies: No Known Drug Allergy GENERAL ORDERS: CBC w Diff Urgent (15:50 10/29/2016 HBivens A.R.N.P.) (Ack 16:08 LNations ER Tech1) (16:13 LWhalen R.N.) CMP Urgent (15:50 10/29/2016 HBivens A.R.N.P.) (Ack 16:08 LNations ER Tech1) (16:13 LWhalen R.N.) UA-Culture if indicated Urgent (15:50 10/29/2016 HBivens A.R.N.P.) (Ack 16:08 LNations ER Tech1) (17:43 LWhalen R.N.) Amylase Urgent (15:50 10/29/2016 HBivens A.R.N.P.) (Ack 16:08 LNations ER Tech1) (16:13 LWhalen R.N.) Lipase Urgent (15:50 10/29/2016 HBivens A.R.N.P.) (Ack 16:08 LNations ER Tech1) (16:13 LWhalen R.N.) MEDICATION ORDERS: IV FLUIDS: IV NS : initial bolus 1000 mL (1000 mL/hr), then none - (NOW) (15:49 10/29/2016 HBivens A.R.N.P.) (16:17 LWhalen R.N.) Toradol IV 30 mg (NOW) (15:49 10/29/2016 HBivens A.R.N.P.) (16:17 LWhalen R.N.) Zofran IV 4 mg (NOW) (15:50 10/29/2016 HBivens A.R.N.P.) (16:17 LWhalen R.N.) IV Saline Lock (15:50 10/29/2016 HBivens A.R.N.P.) (Ack 16:21 LWhalen R.N.) IV NS : initial bolus 1000 mL (1000 mL/hr), then none - (NOW) (17:17 10/29/2016 Erwin A.R.N.P.) (Ack 17:48 LWbreanne R.N.) ORDER SHEET NOTES: [Electronically signed by Frantz Barboza R.N. (18:51 10/29/2016)] [Electronically signed by Sruthi FuentesR.N.P. (21:37 10/29/2016)] [Electronically locked/signed by Frantz Barboza R.N. (18:51 10/29/2016)]
--- NOTE | 2016-10-29 21:37 | ED DISCHARGE INSTRUCTIONS ---
Patient: ROGELIO TEIXEIRA General Instructions [facility] VisitID: [id number] [place] [address] 56y, M Registration Date/Time: 10/29/2016 Acute biliary pancreatitis. No alcoholic, drug-induced or idiopathic pancreatitis. No pseudocyst, abscess or hyperlipidemia. INSTRUCTIONS Drink plenty of fluids for the next 48 hours until better. Warnings: GENERAL WARNINGS: Return or contact your physician immediately if your condition worsens or changes unexpectedly, if not improving as expected, or if other problems arise. SPECIFICALLY, return if you develop pain in the abdomen or pelvis, fever, the inability to keep fluids down, blood in vomitus, blood in diarrhea, fainting or lightheadedness. Prescription Medications: Zofran 4 mg: Take 1 orally every six hours as needed for nausea/vomiting. Dispense ten (10). No refills. Substitution is permissible. [place] 5 mg / 325 mg tablets: take 1 to 2 orally every 6 hours as needed for pain. Dispense fifteen (15). No refills. Substitution is permissible. Follow-up: Follow up with your doctor tomorrow even if well. Call for an appointment. Summary of care provided to patient. Understanding of the discharge instructions verbalized by patient. ADDITIONAL INFORMATION Pancreatitis The pancreas is an organ in the left upper abdomen that secretes digestive juices into the stomach. Pancreatitis is an inflammation of the pancreas. This may occur for various causes including heavy alcohol use, gall stone blockage of the outflow duct from the pancreas, certain medicines and viral illness. Sometimes the cause of pancreatitis cannot be found. Moderate to severe illness requires being treated in the hospital. Milder attacks of pancreatitis can be treated at home. Home Care: 1) Absolutely NO ALCOHOL. 2) Rest in bed or sit up in a chair until you feel better. 3) Eat small more frequent meals rather than a few large meals each day. 4) Follow a high protein, high carbohydrate, low fat diet. 5) If you were given medicine for pain or vomiting, take it as prescribed. Follow Up with your doctor or as directed by our staff for further evaluation. Get Prompt Medical Attention if any of the following occur: -- Continued or worsening pain in the abdomen -- Repeated vomiting: unable to keep down liquids -- Dizziness, weakness or fainting -- Vomiting blood or blood in the stool (black or red color) -- Fever over 100.4 F (38.0 C) -- Severe muscle cramps or seizure -- Trouble breathing or fast breathing (over 25 breaths/minute) -- Jaundice (yellow color of the skin or eyes) Ondansetron Oral disintegrating tablet What is this medicine? ONDANSETRON (on GATITO se lizbeth) is used to treat nausea and vomiting caused by chemotherapy. It is also used to prevent or treat nausea and vomiting after surgery. How should I use this medicine? These tablets are made to dissolve in the mouth. Do not try to push the tablet through the foil backing. With dry hands, peel away the foil backing and gently remove the tablet. Place the tablet in the mouth and allow it to dissolve, then swallow. While you may take these tablets with water, it is not necessary to do so. Talk to your neuropsychologist regarding the use of this medicine in children. Special care may be needed. What side effects may I notice from receiving this medicine? Side effects that you should report to your doctor or health care support representative as soon as possible: allergic reactions like skin rash, itching or hives, swelling of the face, lips, or tongue breathing problems dizziness fast or irregular heartbeat feeling faint or lightheaded, falls fever and chills swelling of the hands and feet tightness in the chest Side effects that usually do not require medical attention (report to your doctor or health care support representative if they continue or are bothersome): constipation or diarrhea headache What may interact with this medicine? Do not take this medicine with any of the following medications: -apomorphine -cisapride -dofetilide -dronedarone -pimozide -thioridazine -ziprasidone This medicine may also interact with the following medications: -carbamazepine -phenytoin -rifampicin -tramadol -other medicines that prolong the QT interval (cause an abnormal heart rhythm) What if I miss a dose? If you miss a dose, take it as soon as you can. If it is almost time for your next dose, take only that dose. Do not take double or extra doses. Where should I keep my medicine? Keep out of the reach of children. Store between 2 and 30 degrees C (36 and 86 degrees F). Throw away any unused medicine after the expiration date. What should I tell my health care provider before I take this medicine? They need to know if you have any of these conditions: heart disease history of irregular heartbeat liver disease low levels of magnesium or potassium in the blood an unusual or allergic reaction to ondansetron, granisetron, other medicines, foods, dyes, or preservatives or trying to get breast-feeding What should I watch for while using this medicine? Check with your doctor or health care support representative as soon as you can if you have any sign of an allergic reaction. Hydrocodone Bitartrate, Acetaminophen Oral tablet What is this medicine? ACETAMINOPHEN; HYDROCODONE (a set a ARGELIA letty fen; harper droe KOE done) is a pain reliever. It is used to treat mild to moderate pain. How should I use this medicine? Take this medicine by mouth. Swallow it with a full glass of water. Follow the directions on the prescription label. If the medicine upsets your stomach, take the medicine with food or milk. Do not take more than you are told to take. Talk to your neuropsychologist regarding the use of this medicine in children. This medicine is not approved for use in children. What side effects may I notice from receiving this medicine? Side effects that you should report to your doctor or health care support representative as soon as possible: allergic reactions like skin rash, itching or hives, swelling of the face, lips, or tongue breathing problems confusion feeling faint or lightheaded, falls stomach pain yellowing of the eyes or skin Side effects that usually do not require medical attention (report to your doctor or health care support representative if they continue or are bothersome): nausea, vomiting stomach upset What may interact with this medicine? alcohol antihistamines isoniazid medicines for depression, anxiety, or psychotic disturbances medicines for sleep muscle relaxants naltrexone narcotic medicines (opiates) for pain phenobarbital ritonavir tramadol What if I miss a dose? If you miss a dose, take it as soon as you can. If it is almost time for your next dose, take only that dose. Do not take double or extra doses. Where should I keep my medicine? Keep out of the reach of children. This medicine can be abused. Keep your medicine in a safe place to protect it from theft. Do not share this medicine with anyone. Selling or giving away this medicine is dangerous and against the law. Store at room temperature between 15 and 30 degrees C (59 and 86 degrees F). Protect from light. Keep container tightly closed. Throw away any unused medicine after the expiration date. Discard unused medicine and used packaging carefully. Pets and children can be harmed if they find used or lost packages. What should I tell my health care provider before I take this medicine? They need to know if you have any of these conditions: brain tumor Crohn's disease, inflammatory bowel disease, or ulcerative colitis drink more than 3 alcohol-containing drinks per day drug abuse or addiction head injury heart or circulation problems kidney disease or problems going to the bathroom liver disease lung disease, asthma, or breathing problems an unusual or allergic reaction to acetaminophen, hydrocodone, other opioid analgesics, other medicines, foods, dyes, or preservatives or trying to get breast-feeding What should I watch for while using this medicine? Tell your doctor or health care support representative if your pain does not go away, if it gets worse, or if you have new or a different type of pain. You may develop tolerance to the medicine. Tolerance means that you will need a higher dose of the medicine for pain relief. Tolerance is normal and is expected if you take the medicine for a long time. Do not suddenly stop taking your medicine because you may develop a severe reaction. Your body becomes used to the medicine. This does NOT mean you are addicted. Addiction is a behavior related to getting and using a drug for a non-medical reason. If you have pain, you have a medical reason to take pain medicine. Your doctor will tell you how much medicine to take. If your doctor wants you to stop the medicine, the dose will be slowly lowered over time to avoid any side effects. You may get drowsy or dizzy when you first start taking the medicine or change doses. Do not drive, use machinery, or do anything that may be dangerous until you know how the medicine affects you. Stand or sit up slowly. There are different types of narcotic medicines (opiates) for pain. If you take more than one type at the same time, you may have more side effects. Give your health care provider a list of all medicines you use. Your doctor will tell you how much medicine to take. Do not take more medicine than directed. Call emergency for help if you have problems breathing. The medicine will cause constipation. Try to have a bowel movement at least every 2 to 3 days. If you do not have a bowel movement for 3 days, call your doctor or health care support representative. Too much acetaminophen can be very dangerous. Do not take Tylenol (acetaminophen) or medicines that contain acetaminophen with this medicine. Many non-prescription medicines contain acetaminophen. Always read the labels carefully. You have been given the following additional information: Pancreatitis Ondansetron Oral disintegrating tablet Hydrocodone Bitartrate, Acetaminophen Oral tablet (Electronically signed by Sruthi Fuentes A.R.N.P. 10/29/2016 21:37)
--- NOTE | 2016-10-29 21:37 | ED MAR SUMMARY ---
..... Medication Administration Record [facility] [address] [place] [place] [address] Patient: ROGELIO TEIXEIRA Visit ID: [id number] 56y, M Weight: 57.6 kg Height/Length: 66 in BMI: 20.5 ALLERGIES: No Known Drug Allergy Given 16:12 10/29/2016 Frantz Barboza R.N. Medication Administered: TORADOL [IVP], Dose: 30 mg IVP over 2 minute(s), Site: #1 right forearm. Medication Ordered: Toradol IV 30 mg (NOW). Start 16:14 10/29/2016 Frantz Barboza R.N., Stop 17:15 10/29/2016 Frantz Barboza R.N. Medication Administered: IV NS (SALINE), Dose: IV Fluids over 1 hour(s), Rate: 1000 mL/hr, Dispensed: 1000 mL bag, Site: #1 right forearm. Medication Ordered: IV NS : initial bolus 1000 mL (1000 mL/hr), then none - (NOW). Given 16:17 10/29/2016 Frantz Barboza R.N. Medication Administered: ZOFRAN [IVP] (ONDANSETRON HCL), Dose: 4 mg IVP over 2 minute(s), Site: #1 right forearm. Medication Ordered: Zofran IV 4 mg (NOW). Start 17:20 10/29/2016 Frantz Barboza R.N., Stop 18:30 10/29/2016 Frantz Barboza R.N. Medication Administered: IV NS (SALINE), Dose: IV Fluids over 1 hour(s), Rate: 1000 mL/hr, Dispensed: 1000 mL bag, Site: #1 right forearm. Medication Ordered: IV NS : initial bolus 1000 mL (1000 mL/hr), then none - (NOW).
--- NOTE | 2016-10-29 21:37 | ED MED RECONCILIATION SUMMARY ---
Patient: ROGELIO TEIXEIRA Medication Reconciliation Report [facility] VisitID: [id number] [address] [place] [address] 56y, M Registration Date/Time: 10/29/2016 Weight: 57.6 kg Height/Length: 66 in. BMI: 20.5 ALLERGIES: No Known Drug Allergy The patient's Home Medications are listed below: THE FOLLOWING MEDICATIONS NEED TO BE RECONCILED: Bp meds PriLOSEC Oral, daily, not sure of dose The source(s) of the original Home Medication information: Not obtained. The following Medications were given to the patient in the Emergency Department: IV NS IV Fluids bolus 0, then 1000 mL/hr, administered: 10/29/2016 4:14:00 PM Toradol [IVP] IVP 30 mg, administered: 10/29/2016 4:12:00 PM Zofran [IVP] IVP 4 mg, administered: 10/29/2016 4:17:00 PM IV NS IV Fluids bolus 0, then 1000 mL/hr, administered: 10/29/2016 5:20:00 PM The following Medications were prescribed to the patient: Zofran 4 mg: Take 1 orally every six hours as needed for nausea/vomiting. Dispense ten (10). No refills. Substitution is permissible. -- Sruthi Fuentes, A.R.N.P. [place] 5 mg / 325 mg tablets: take 1 to 2 orally every 6 hours as needed for pain. Dispense fifteen (15). No refills. Substitution is permissible. -- Sruthi Fuentes, A.R.N.P.
--- NOTE | 2016-10-29 21:37 | ED DISCHARGE INSTRUCTIONS ---
Patient: ROGELIO TEIXEIRA General Instructions [facility] VisitID: [id number] [place] [address] 56y, M Registration Date/Time: 10/29/2016 Acute biliary pancreatitis. No alcoholic, drug-induced or idiopathic pancreatitis. No pseudocyst, abscess or hyperlipidemia. INSTRUCTIONS Drink plenty of fluids for the next 48 hours until better. Warnings: GENERAL WARNINGS: Return or contact your physician immediately if your condition worsens or changes unexpectedly, if not improving as expected, or if other problems arise. SPECIFICALLY, return if you develop pain in the abdomen or pelvis, fever, the inability to keep fluids down, blood in vomitus, blood in diarrhea, fainting or lightheadedness. Prescription Medications: Zofran 4 mg: Take 1 orally every six hours as needed for nausea/vomiting. Dispense ten (10). No refills. Substitution is permissible. [place] 5 mg / 325 mg tablets: take 1 to 2 orally every 6 hours as needed for pain. Dispense fifteen (15). No refills. Substitution is permissible. Follow-up: Follow up with your doctor tomorrow even if well. Call for an appointment. Summary of care provided to patient. Understanding of the discharge instructions verbalized by patient. ADDITIONAL INFORMATION Pancreatitis The pancreas is an organ in the left upper abdomen that secretes digestive juices into the stomach. Pancreatitis is an inflammation of the pancreas. This may occur for various causes including heavy alcohol use, gall stone blockage of the outflow duct from the pancreas, certain medicines and viral illness. Sometimes the cause of pancreatitis cannot be found. Moderate to severe illness requires being treated in the hospital. Milder attacks of pancreatitis can be treated at home. Home Care: 1) Absolutely NO ALCOHOL. 2) Rest in bed or sit up in a chair until you feel better. 3) Eat small more frequent meals rather than a few large meals each day. 4) Follow a high protein, high carbohydrate, low fat diet. 5) If you were given medicine for pain or vomiting, take it as prescribed. Follow Up with your doctor or as directed by our staff for further evaluation. Get Prompt Medical Attention if any of the following occur: -- Continued or worsening pain in the abdomen -- Repeated vomiting: unable to keep down liquids -- Dizziness, weakness or fainting -- Vomiting blood or blood in the stool (black or red color) -- Fever over 100.4 F (38.0 C) -- Severe muscle cramps or seizure -- Trouble breathing or fast breathing (over 25 breaths/minute) -- Jaundice (yellow color of the skin or eyes) Ondansetron Oral disintegrating tablet What is this medicine? ONDANSETRON (on GATITO se lizbeth) is used to treat nausea and vomiting caused by chemotherapy. It is also used to prevent or treat nausea and vomiting after surgery. How should I use this medicine? These tablets are made to dissolve in the mouth. Do not try to push the tablet through the foil backing. With dry hands, peel away the foil backing and gently remove the tablet. Place the tablet in the mouth and allow it to dissolve, then swallow. While you may take these tablets with water, it is not necessary to do so. Talk to your office mover regarding the use of this medicine in children. Special care may be needed. What side effects may I notice from receiving this medicine? Side effects that you should report to your doctor or health skin care instructor as soon as possible: allergic reactions like skin rash, itching or hives, swelling of the face, lips, or tongue breathing problems dizziness fast or irregular heartbeat feeling faint or lightheaded, falls fever and chills swelling of the hands and feet tightness in the chest Side effects that usually do not require medical attention (report to your doctor or health skin care instructor if they continue or are bothersome): constipation or diarrhea headache What may interact with this medicine? Do not take this medicine with any of the following medications: -apomorphine -cisapride -dofetilide -dronedarone -pimozide -thioridazine -ziprasidone This medicine may also interact with the following medications: -carbamazepine -phenytoin -rifampicin -tramadol -other medicines that prolong the QT interval (cause an abnormal heart rhythm) What if I miss a dose? If you miss a dose, take it as soon as you can. If it is almost time for your next dose, take only that dose. Do not take double or extra doses. Where should I keep my medicine? Keep out of the reach of children. Store between 2 and 30 degrees C (36 and 86 degrees F). Throw away any unused medicine after the expiration date. What should I tell my health care provider before I take this medicine? They need to know if you have any of these conditions: heart disease history of irregular heartbeat liver disease low levels of magnesium or potassium in the blood an unusual or allergic reaction to ondansetron, granisetron, other medicines, foods, dyes, or preservatives or trying to get breast-feeding What should I watch for while using this medicine? Check with your doctor or health skin care instructor as soon as you can if you have any sign of an allergic reaction. Hydrocodone Bitartrate, Acetaminophen Oral tablet What is this medicine? ACETAMINOPHEN; HYDROCODONE (a set a ARGELIA letty fen; harper droe KOE done) is a pain reliever. It is used to treat mild to moderate pain. How should I use this medicine? Take this medicine by mouth. Swallow it with a full glass of water. Follow the directions on the prescription label. If the medicine upsets your stomach, take the medicine with food or milk. Do not take more than you are told to take. Talk to your office mover regarding the use of this medicine in children. This medicine is not approved for use in children. What side effects may I notice from receiving this medicine? Side effects that you should report to your doctor or health skin care instructor as soon as possible: allergic reactions like skin rash, itching or hives, swelling of the face, lips, or tongue breathing problems confusion feeling faint or lightheaded, falls stomach pain yellowing of the eyes or skin Side effects that usually do not require medical attention (report to your doctor or health skin care instructor if they continue or are bothersome): nausea, vomiting stomach upset What may interact with this medicine? alcohol antihistamines isoniazid medicines for depression, anxiety, or psychotic disturbances medicines for sleep muscle relaxants naltrexone narcotic medicines (opiates) for pain phenobarbital ritonavir tramadol What if I miss a dose? If you miss a dose, take it as soon as you can. If it is almost time for your next dose, take only that dose. Do not take double or extra doses. Where should I keep my medicine? Keep out of the reach of children. This medicine can be abused. Keep your medicine in a safe place to protect it from theft. Do not share this medicine with anyone. Selling or giving away this medicine is dangerous and against the law. Store at room temperature between 15 and 30 degrees C (59 and 86 degrees F). Protect from light. Keep container tightly closed. Throw away any unused medicine after the expiration date. Discard unused medicine and used packaging carefully. Pets and children can be harmed if they find used or lost packages. What should I tell my health care provider before I take this medicine? They need to know if you have any of these conditions: brain tumor Crohn's disease, inflammatory bowel disease, or ulcerative colitis drink more than 3 alcohol-containing drinks per day drug abuse or addiction head injury heart or circulation problems kidney disease or problems going to the bathroom liver disease lung disease, asthma, or breathing problems an unusual or allergic reaction to acetaminophen, hydrocodone, other opioid analgesics, other medicines, foods, dyes, or preservatives or trying to get breast-feeding What should I watch for while using this medicine? Tell your doctor or health skin care instructor if your pain does not go away, if it gets worse, or if you have new or a different type of pain. You may develop tolerance to the medicine. Tolerance means that you will need a higher dose of the medicine for pain relief. Tolerance is normal and is expected if you take the medicine for a long time. Do not suddenly stop taking your medicine because you may develop a severe reaction. Your body becomes used to the medicine. This does NOT mean you are addicted. Addiction is a behavior related to getting and using a drug for a non-medical reason. If you have pain, you have a medical reason to take pain medicine. Your doctor will tell you how much medicine to take. If your doctor wants you to stop the medicine, the dose will be slowly lowered over time to avoid any side effects. You may get drowsy or dizzy when you first start taking the medicine or change doses. Do not drive, use machinery, or do anything that may be dangerous until you know how the medicine affects you. Stand or sit up slowly. There are different types of narcotic medicines (opiates) for pain. If you take more than one type at the same time, you may have more side effects. Give your health care provider a list of all medicines you use. Your doctor will tell you how much medicine to take. Do not take more medicine than directed. Call emergency for help if you have problems breathing. The medicine will cause constipation. Try to have a bowel movement at least every 2 to 3 days. If you do not have a bowel movement for 3 days, call your doctor or health skin care instructor. Too much acetaminophen can be very dangerous. Do not take Tylenol (acetaminophen) or medicines that contain acetaminophen with this medicine. Many non-prescription medicines contain acetaminophen. Always read the labels carefully. You have been given the following additional information: Pancreatitis Ondansetron Oral disintegrating tablet Hydrocodone Bitartrate, Acetaminophen Oral tablet (Electronically signed by Sruthi Fuentes A.R.N.P. 10/29/2016 21:37)
--- NOTE | 2016-10-29 21:37 | ED MED RECONCILIATION SUMMARY ---
Patient: ROGELIO TEIXEIRA Medication Reconciliation Report [facility] VisitID: [id number] [address] [place] [address] 56y, M Registration Date/Time: 10/29/2016 Weight: 57.6 kg Height/Length: 66 in. BMI: 20.5 ALLERGIES: No Known Drug Allergy The patient's Home Medications are listed below: THE FOLLOWING MEDICATIONS NEED TO BE RECONCILED: Bp meds PriLOSEC Oral, daily, not sure of dose The source(s) of the original Home Medication information: Not obtained. The following Medications were given to the patient in the Emergency Department: IV NS IV Fluids bolus 0, then 1000 mL/hr, administered: 10/29/2016 4:14:00 PM Toradol [IVP] IVP 30 mg, administered: 10/29/2016 4:12:00 PM Zofran [IVP] IVP 4 mg, administered: 10/29/2016 4:17:00 PM IV NS IV Fluids bolus 0, then 1000 mL/hr, administered: 10/29/2016 5:20:00 PM The following Medications were prescribed to the patient: Zofran 4 mg: Take 1 orally every six hours as needed for nausea/vomiting. Dispense ten (10). No refills. Substitution is permissible. -- Sruthi Fuentes, A.R.N.P. [place] 5 mg / 325 mg tablets: take 1 to 2 orally every 6 hours as needed for pain. Dispense fifteen (15). No refills. Substitution is permissible. -- Sruthi Fuentes, A.R.N.P.
--- NOTE | 2016-10-29 21:37 | ED MAR SUMMARY ---
..... Medication Administration Record [facility] [address] [place] [address] Patient: ROGELIO TEIXEIRA Visit ID: [id number] 56y, M Weight: 57.6 kg Height/Length: 66 in BMI: 20.5 ALLERGIES: No Known Drug Allergy Given 16:12 10/29/2016 Frantz Barboza R.N. Medication Administered: TORADOL [IVP], Dose: 30 mg IVP over 2 minute(s), Site: #1 right forearm. Medication Ordered: Toradol IV 30 mg (NOW). Start 16:14 10/29/2016 Frantz Barboza R.N., Stop 17:15 10/29/2016 Frantz Barboza R.N. Medication Administered: IV NS (SALINE), Dose: IV Fluids over 1 hour(s), Rate: 1000 mL/hr, Dispensed: 1000 mL bag, Site: #1 right forearm. Medication Ordered: IV NS : initial bolus 1000 mL (1000 mL/hr), then none - (NOW). Given 16:17 10/29/2016 Frantz Barboza R.N. Medication Administered: ZOFRAN [IVP] (ONDANSETRON HCL), Dose: 4 mg IVP over 2 minute(s), Site: #1 right forearm. Medication Ordered: Zofran IV 4 mg (NOW). Start 17:20 10/29/2016 Frantz Barboza R.N., Stop 18:30 10/29/2016 Frantz Barboza R.N. Medication Administered: IV NS (SALINE), Dose: IV Fluids over 1 hour(s), Rate: 1000 mL/hr, Dispensed: 1000 mL bag, Site: #1 right forearm. Medication Ordered: IV NS : initial bolus 1000 mL (1000 mL/hr), then none - (NOW).
== END 2016-10-29 18:30 | disposition home or self-care (01) ==
LOC: ED SRH 15:17
DX: K85.10 Biliary acute pancreatitis without necrosis or infection (principal); Z79.899 Other long term (current) drug therapy; F17.210 Nicotine dependence, cigarettes, uncomplicated
CPT/HCPCS: 90100; 92235; 92530; 95059